=== PATIENT | male | born 1985 | race Two or more races ===

== ENCOUNTER 2018-06-19 15:31 | Emergency (ER) | payer OTHER ==
[2018-06-19] MEDS ORDERED: IBUPROFEN 600 MG TAB PO ONE (15:46)
[2018-06-19 15:49] VITALS: BP 150/96
--- NOTE | 2018-06-19 16:23 | EDPHY ---
H & P Time Seen by Provider: 06/19/18 16:11 HPI/ROS: This patient injured his right 3rd and 4th toe today at work shortly prior to arrival when it a concrete fence post fell off a Pallet landed on his toes. He was wearing tennis shoes at the time and reports 8/10 pain with associated swelling and ecchymosis to the peak right 3rd and 4th toes. A co-worker drove him here by private vehicle for evaluation of this injury. He denies any other complaints. The pain worsens with walking and diminishes at rest. No other exacerbating factors. He did not have any medication for the pain prior to arrival. ROS: Constitutional: No complaints neuro: No numbness or tingling Integumentary: No lacerations Musculoskeletal: No other injuries 5 point ROS is otherwise negative besides what is mentioned in HPI and ROS Smoking Status: Never smoked Physical Exam: Physical Exam Vital signs are normal. General: No acute distress Lungs: No respiratory distress. Cardiac: Brisk capillary refill is intact throughout the affected toes Skin: No rash or pallor. Extremities: Atraumatic normal except for right foot Right foot: Patient has 3rd 4th toe swelling tenderness and ecchymosis to the distal phalanx of each toe 4th toe with slightly more swelling than the 3rd toe. There is no malrotation with the toes reviewed on end. No full-thickness laceration others superficial abrasion to the 3rd toe. No bleeding. No forefoot swelling and tenderness, ankle swelling or tenderness or other traumatic findings. Neuro: Alert and oriented with no sensorimotor deficits to the affected toes. Initial differential diagnosis: Traumatic hematoma, toe fracture, contusion Constitutional: Initial Vital Signs Temperature (C) 37.2 C 06/19/18 15:39 Heart Rate 84 06/19/18 15:39 Respiratory Rate 16 06/19/18 15:39 Blood Pressure 150/96 H 06/19/18 15:39 O2 Sat (%) 98 06/19/18 15:39 O2 Delivery Mode Room Air Allergies/Adverse Reactions: No Known Allergies Allergy (Unverified 06/19/18 15:43) Home Medications: Medication Instructions Recorded traMADol [Ultram 50 mg (*)] 50 - 100 mg PO Q4 PRN #20 tab 06/19/18 MDM/Departure - MDM Diagnostics: Foot x-ray: Fractures of 3rd and 4th distal phalanx by my interpretation minimally displaced with no intra-articular fracture Imaging Results: Imaging Impressions Toe X-Ray 06/19/18 15:51 Impression: Acute nondisplaced fractures of distal phalanges of toes 3 and 4. Imaging: I viewed and interpreted images myself Medications Given: Discontinued Medications Ibuprofen (Motrin) 600 mg PO EDNOW ONE Stop: 06/19/18 15:47 Last Admin: 06/19/18 15:49 Dose: 600 mg ED Course/Re-evaluation: Ibuprofen p.o. Followed by lin taping postop shoe. I counseled the patient regarding toe fractures. Will follow up with work comp clinic later this week. Will treat with ibuprofen Tylenol and tramadol for pain that prevents sleep. Our tech Geoffrey ceballos tape this patient's toes according to my instructions and placed him in a postop shoe. Patient remained neurovascularly intact post splint application. We counseled him regarding toe fractures. He will be off work for the next 2 days with plan to follow up with work comp clinic this coming Sunday - Depart Disposition: Home, Routine, Self-Care Clinical Impression: Fracture of multiple toes Qualifiers: Encounter type: initial encounter Fracture type: closed Laterality: right Qualified Code(s): S92.911A - Unspecified fracture of right toe(s), initial encounter for closed fracture Condition: Good Instructions: Toe Fracture (ED) Additional Instructions: Diagnosis: Toe fractures-right 3rd and 4th distal phalanx Plan: Ice 20 min at a time to 3 times a day until symptoms improve Lin-tape toes Postop shoe Ibuprofen Tylenol for pain Tramadol in addition for pain that prevents sleep if needed. Call today to arrange follow-up appointment with your work comp clinic for Sunday. No work for the next 2 days Stand Alone Forms: Work Comp Follow Up, Work Excuse Prescriptions: traMADol [Ultram 50 mg (*)] 50 - 100 mg PO Q4 PRN #20 tab PRN Reason: breakthrough pain Referrals: NONE *PRIMARY CARE P,. [Primary Care Provider] - As per Instructions Margaret Veliz MD [[facility] Primary Care Provider] - As per Instructions
== END 2018-06-19 16:35 | disposition home or self-care (01) ==
LOC: CED 15:31
DX: S92.534A Nondisplaced fracture of distal phalanx of right lesser toe(s), initial encounter for closed fracture (principal); W20.8XXA Other cause of strike by thrown, projected or falling object, initial encounter; Y92.69 Other specified industrial and construction area as the place of occurrence of the external cause
CPT/HCPCS: 73660-PO; L4386